=== PATIENT | male | born 1995 | race Caucasian/White ===

== ENCOUNTER 2018-05-26 00:39 | Emergency (ER) | payer SELFPAY ==
[2018-05-26 00:41] VITALS: BP 127/77; PULSE 77; RESP 18; TEMP 36.5; O2SAT 99; BMI 32.7
--- NOTE | 2018-05-26 00:56 | ED.DCSUM_ITS ---
- ER Visit Summary Date of Service: 05/26/18 Chief Complaint: [] Nausea vomiting diarrhea abdominal pain History of Present Illness: The patient is a 22 M patient stated he has had nausea vomiting diarrhea for the last 3 days. The nausea vomiting has resolved. He is tolerating orals. He continues to have loose watery diarrhea however. He felt bloated tonight took a glass of water with baking soda mixed in a colon cleanse pill. After he did that 5 minutes later he started having abdominal cramping. He tried the ranitidine with minimal relief. He comes in mainly for pain control his abdomen. No sick contacts. No bad food exposures. Gallbladder has been resected remotely Physical Examination: Vital signs reviewed General: Well-nourished well-developed Head: Normocephalic atraumatic Eyes: Pupils equal round and reactive to light extraocular movements intact ENT: TMs clear no hemotympanum no trauma Neck: Nontender full range of motion Cardiovascular: Regular rate rhythm no murmurs normal S1-S2 Respiratory: No distress clear to auscultation bilaterally chest nontender Abdomen: Soft, mild upper abdominal tenderness. Nonsurgical abdomen. No guarding or rebound nondistended normal bowel sounds no masses Back: Nontender no CVA tenderness Extremities: Nontender active range of motion ?4 extremities no trauma Skin: Normal color no trauma Neuro alert oriented cranial nerves II through XII intact normal strength sensation reflexes Test Results: [] Emergency Department Course and Treatment: [] Resting comfortably other than some upper abdominal discomfort. Given a shot of morphine. I do not think he needs lab work or imaging. He has no nausea. He will use [id number] Imodium. I think the combination of the baking soda with water in his colon cleanse laxative upset his stomach and bowels. We will follow-up as an outpatient Treatment Plan: [] Disposition: [] Impression: [] Abdominal pain Diarrhea This note was generated with [employer] dictation software. It may contain incorrect words, spelling, and punctuation that were not noted in review of the chart prior to signing ED Disposition - Plan for ED Patient: Chief Complaint: Abd Pain Referrals: NOT,DEFINED [Primary Care Provider] -
[2018-05-26] MEDS: morphine 8 MG/ML Syringe IM (01:00)
--- NOTE | 2018-05-26 01:16 | ED.DEP ---
ED Disposition - Plan for ED Patient: Disposition: Home or Assisted Living Chief Complaint: Abd Pain Instructions: ED Gastroenteritis Viral Referrals: NOT,DEFINED [NON-STAFF] -
[2018-05-26 01:42] VITALS: BP 126/70; PULSE 76; RESP 16; O2SAT 95
== END 2018-05-26 01:43 | disposition home or self-care (01) ==
PROVIDERS: Emergency Provider Emergency Medicine
DX: R10.9 Unspecified abdominal pain (principal); R19.7 Diarrhea, unspecified; R11.2 Nausea with vomiting, unspecified
CPT/HCPCS: 96372; 99282